=== PATIENT | male | born 1965 | race Caucasian/White ===

== ENCOUNTER → 2019-02-20 | Outpatient (CLI) | payer BC ==
--- NOTE | 2019-02-20 20:20 | CONS ---
CONSULTATION REASON FOR CONSULTATION: Insomnia. This is a 54-year-old male patient who works and lives in [place], a small business dentist/owner/commercial manager, coming in due to difficulties with his sleep quality. The patient's chief complaint is that he wakes up a lot in the middle of the night and does not feel like he can get a good night's sleep. Upon reviewing his sleep schedule, the patient goes to bed around 9 p.m., and he tries to wake up at 5 a.m. in the morning. On weekends he keeps the same schedule. He feels that he is taking only 4-5 hours of sleep. He has no difficulty initiating sleep. He wakes up around 1 a.m. and gets out of bed, turns on the lights, eats, and do various activities; and ultimately he calms himself down and he is able to go back to bed following that. He feels tired during the day. He may take a nap that lasts around 10-20 minutes which gives him an adequate refreshing feeling. He is not sure if he snores. No episodes of choking or gasping for air at nighttime. He has nocturia. No substance abuse. No recent weight gain. He has increased anxiety. He cannot shut down his brain and he thinks of work- related matters. No history of depression. No issues with pain, heartburn, chest pain or shortness of breath. PAST MEDICAL HISTORY: 1. Diabetes. 2. Hyperlipidemia. 3. Chronic anxiety. PAST SURGICAL HISTORY: Includes back surgery and surgery. DRUG ALLERGIES: NOT KNOWN. OUTPATIENT MEDICATION LIST: List includes: 1. Venlafaxine. 2. Hydrochlorothiazide. 3. Metformin. 4. BuSpar. 5. Lipitor. SOCIAL HISTORY: Nonsmoker. No history of alcoholism. No history of IV drugs. FAMILY HISTORY: Negative for sleep apnea. REVIEW OF SYSTEMS: Fourteen-point review of system was done. Positive findings are all mentioned above in the history of present illness. PHYSICAL EXAMINATION: BP is 126/77. Pulse is 77, respirations 16. Weight is 253, height is 6 feet 1 inch. BMI 33.3. Van Meter score is 16. Neck size 17-1/3 inches. Temperature 97.9. GENERAL APPEARANCE: Calm, comfortable. Head is atraumatic, normocephalic. NECK: Supple. Mallampati class IV. No goiter or neck mass. LUNGS: Clear to auscultation. HEART: Heart sounds are regular rate and rhythm. Normal S1, S2. No S3, S4. No murmurs. ABDOMEN: Soft, nontender. No organomegaly. EXTREMITIES: No edema. No cyanosis or clubbing. Neurologically alert and oriented x3. There is no focal neurological deficit Psychiatrically increased anxiety. No depression. IMPRESSION: 1. Sleep maintenance insomnia. This is probably related to impaired sleep hygiene measures in addition to increased anxiety. Sleep apnea is felt to be less likely. 2. Hypertension. 3. Hyperlipidemia. 4. Diabetes mellitus. 5. Chronic anxiety. PLAN: This patient needs to implement sleep restriction. I think he will not achieve sleeping hours between 9 and 5 a.m., and trying to achieve this type of sleep schedule will obviously impair his overall sleep efficiency. I am going to ask this patient to go to bed around 10:00. He needs to take his BuSpar around 20 to 30 minutes before going to bed. By going to bed later on, he may be able to increase his sleep efficiency and ultimately get into a rhythm of sleep and improve his sleep/wake cycle, and we can gradually move him to an earlier time to go to bed if he is able to achieve at least 90% of sleep deficiency. During this time, I would encourage relaxation techniques, yoga, meditation, and exercise which is very helpful in reducing his level of anxiety and promoting sleep in the later hours. Exercise should be implemented somewhere between 5 and 7 p.m. All these issues were discussed with him in addition to issues related to his sleep hygiene. He should avoid light stimulation at nighttime. He needs to continue his venlafaxine with the possibility of increasing the dose if he continues to have increased generalized anxiety disorder. PSG will be done at a later stage to make sure there are no other comorbidities contributing to this patient's sleep maintenance insomnia. Will continue to follow. MMODL / IJN: [id number] /
== END | disposition home or self-care (01) ==
LOC: SLEEP 16:55
PROVIDERS: ATTEND Internal Medicine Critical Care Medicine
DX: G47.09 Other insomnia (principal); I10 Essential (primary) hypertension; E78.5 Hyperlipidemia, unspecified; E11.9 Type 2 diabetes mellitus without complications; F41.9 Anxiety disorder, unspecified; Z79.84 Long term (current) use of oral hypoglycemic drugs; Z79.899 Other long term (current) drug therapy
CPT/HCPCS: 99211

== ENCOUNTER → 2019-12-25 | Outpatient (CLI) | payer BC ==
--- NOTE | 2019-12-25 15:00 | PN ---
PROGRESS NOTE Crescencio is diagnosed having moderate to severe obstructive sleep apnea with an AHI of 29, worse in the supine body position with an AHI of 51. The patient is coming in for a compliancy check. The patient was given APAP and he is coming in to check regarding his compliance and clinical response. Clinically, he is feeling better. He is using a full-face mask. He is using the Air Touch full-face mask for now. His APAP is at a minimum pressure of 5 and a maximum pressure of 20 and based on a 30-day compliance, the patient has been utilizing his machine every night and he has been achieving around 4.5 hours of APAP use per night and average pressure is 11.7. Leak is 28 L/minute and his AHI is down to 1. Weight is 249. His Lincoln score is at 8. Doing well. No specific complaints. No major hypersomnia or sleepiness during the day. He is also willing to try alternative masks including the possibility of a nose mask. REVIEW OF SYSTEMS: A 14-point review of system was done. Positive findings were as mentioned in history of present illness. BP is 146/79, pulse 89, respirations 16, temperature is 98.0, weight is 249. Lincoln score is 8, saturation 97% on room air. GENERAL APPEARANCE: Calm, comfortable. HEAD: Atraumatic, normocephalic. NECK: Supple. No JVD. No goiter. Neck masses. Mallampati class IV. LUNGS: Clear to auscultation. HEART: Regular rate and rhythm. Normal S1, S2. No S3, S4. No murmurs. ABDOMEN: Soft, nontender. No organomegaly. EXTREMITIES: No edema. No cyanosis or clubbing. NEUROLOGIC: He is awake and alert. There are no focal neurological deficits. PSYCHIATRIC: Negative for anxiety or depression. IMPRESSION: 1. Obstructive sleep apnea, apnea-hypopnea index of 29, currently on a APAP with excellent clinical response and compliance. 2. Mild nocturnal oxygen desaturation, secondary to obstructive sleep apnea. 3. Hypersomnia,. secondary to obstructive sleep apnea, improved. The patient's Lincoln score is currently down to 8. 4. Chronic anxiety. 5. Diabetes mellitus. 6. Hyperlipidemia. 7. Chronic impairment of sleep hygiene measures which have improved. PLAN: 1. Continue APAP at the same level of pressure. 2. Provide the patient Air Fit N30 I nose mask to try. 3. The patient's chronic anxiety is on venlafaxine and BuSpar and this will be continued. 4. Encourage weight loss. 5. Implement good sleep hygiene measures. 6. Will see me back in the office in a year's time in followup. He is going to give himself a trial of nose mask instead of the Air Touch and a sample was provided. MMGABRIELL / IJN: [id number] /
== END | disposition home or self-care (01) ==
LOC: SLEEP 13:21
PROVIDERS: ATTEND Internal Medicine Critical Care Medicine
DX: G47.33 Obstructive sleep apnea (adult) (pediatric) (principal); F41.8 Other specified anxiety disorders; E78.5 Hyperlipidemia, unspecified; E11.9 Type 2 diabetes mellitus without complications; Z99.89 Dependence on other enabling machines and devices

== ENCOUNTER 2022-01-13 09:01 | Day surgery (SDC) | payer BC ==
[2022-01-11 15:34] VITALS: BMI 30.9
[~2022-01-13 09:01] MED LIST: DEXAMETHASONE SOD PHOSPHATE 4 MG/ML 1 ML VIAL IV ONE; DEXAMETHASONE SOD PHOSPHATE 4 MG/ML 1 ML VIAL IV PRN; FAMOTIDINE 20 MG/2 ML VIAL IV PRN; HYDROmorphone 0.5 MG/0.5 ML SYRINGE IVP PRN; LACTATED RINGERS 1,000 ML IV SCH; LIDOCAINE 1% (10MG/ML) FOR IV START INTRADERMA PRN; MIDAZOLAM 2 MG/2 ML VIAL IV PRN; ONDANSETRON 4 MG/2 ML VIAL IVP ONE; ONDANSETRON 4 MG/2 ML VIAL IVP PRN; metroNIDAZOLE-NS PMX 500 MG in SALINE 1 100ML.BAG IVPB PRN
[2022-01-13] MEDS: OXYMETAZOLINE 0.05% NASL SPRAY 1 SPRAY BOTTLE EA NOSTRIL PRN ×5 (09:53→10:14)
[2022-01-13 10:12] LABS: Glucose,Whole Blood 164 mg/dL (75-99)
[2022-01-13 10:14] VITALS: RESP 16
[2022-01-13] MEDS ORDERED: MIDAZOLAM 2 MG/2 ML VIAL ONE (10:51)
[2022-01-13] MEDS ORDERED: PROPOFOL 10 MG/ML 20 ML VIAL IV ONE (10:51)
[2022-01-13] MEDS ORDERED: fentaNYL (PF) 50 MCG/ML 2 ML AMP ONE (10:51)
[2022-01-13] MEDS ORDERED: SUCCINYLCHOLINE CHLORIDE 100 MG/5 ML SYR IV ONE (10:51)
[2022-01-13] MEDS ORDERED: LIDOCAINE 1% INJ 10MG/ML (20 ML MDV) ONE (10:51)
[2022-01-13] MEDS ORDERED: LIDOCAINE 2%-EPI 1:100,000 20 ML VIAL SUBMUCOSAL ONE ×2 (11:11)
[2022-01-13] MEDS ORDERED: BACITRACIN ZINC 500 UNIT/GM OINT 28.4 GM TUBE TOPICAL ONE (11:16)
--- NOTE | 2022-01-13 11:49 | P.OP ---
Date of Procedure: 01/13/22 Preoperative Diagnosis: Deviated nasal septum Inferior turbinate hypertrophy Obstructive sleep apnea Postoperative Diagnosis: Same Procedure(s) Performed: Left plus Outfracture and submucous resection inferior turbinates Anesthesia: VANIA Surgeon: Cecilio Diggs Estimated Blood Loss (ml): 3 Pathology: other (Nasal septal bone and cartilage) Condition: stable Disposition: PACU Indications for Procedure: A 56-year-old white male with difficulties with chronic nasal airway obstruction and congestion. He also has snoring and sleep apnea with an RDI of 28. He was originally going to proceed with septoplasty inferior turbinoplasty and tonsillectomy with uvulopalatopharyngoplasty but has elected to proceed with septoplasty and inferior turbinoplasty only at this point. He understands that he may still have snoring and sleep apnea without the other procedures. Operative Findings: Nasal septum deviated to the right obstructing prostate the percent and nasal airway and inferior turbinates hypertrophied bilaterally Description of Procedure: DESCRIPTION OF PROCEDURE: The patient was brought to the operative suite, placed in the supine position. The patient underwent induction of general anesthesia with oral endotracheal intubation without difficulty. The patient was prepped and draped in the usual aseptic fashion. 1% lidocaine with 1:100,000 epinephrine was infused submucosally on both sides of the nasal septum. While this was taking vasoconstrictive effect, the inferior turbinates were infractured with a Smith elevator. Partial submucous resection of the inferior turbinates was performed with Coblation device ablating a portion of the submucosal soft tissue. The inferior turbinates were then outfractured with a Smith elevator. A left hemitransfixion incision was then made through the mucoperichondrial. M ucoperiosteal flap on the left elevated. Bony cartilaginous junction was disarticulated and mucoperiosteal flap on the right was elevated. Bony nasoseptal deformity were removed with Michell forceps and an inferior cartilaginous strip was removed, leaving a full 1.5 cm caudal strut. Checking intranasally, this corrected the nasal septal deformities and the hemitransfixion incision was closed with running 4-0 chromic suture. The bilateral Davison airway splints coated in bacitracin ointment were placed in the nasal cavities and sutured transseptally with 4-0 nylon suture. The patient was then suctioned in an orogastric fashion. The patient was allowed to emerge from general anesthesia, having tolerated the procedure well and was extubated in the operating suite, transferred to postoperative recovery area in satisfactory condition.
[2022-01-13 11:56] VITALS: TEMP 97
[2022-01-13] MEDS ORDERED: ONDANSETRON 4 MG/2 ML VIAL IVP ONE (12:21)
[2022-01-13] MEDS ORDERED: HYDROmorphone 0.5 MG/0.5 ML SYRINGE IVP ONE (13:05)
[2022-01-13 13:33] VITALS: BP 127/80; PULSE 78
== END 2022-01-13 14:36 | disposition home or self-care (01) ==
LOC: OR 09:01
PROVIDERS: ATTEND Otolaryngology
DX: J34.2 Deviated nasal septum (principal); J34.3 Hypertrophy of nasal turbinates; G47.33 Obstructive sleep apnea (adult) (pediatric); E11.9 Type 2 diabetes mellitus without complications; Z83.3 Family history of diabetes mellitus; Z79.84 Long term (current) use of oral hypoglycemic drugs; E78.5 Hyperlipidemia, unspecified
CPT/HCPCS: 88300; 30520; 30140; J2250; J1100; J0690; J2405; J2001; J3010; J0330; J2704; J1170